=== PATIENT | female | born 1955 | race Caucasian/White ===

== ENCOUNTER 2021-05-12 09:56 | Emergency (ER) | payer MEDICAID ==
[~2021-05-12] VITALS: Ht 160 cm; Wt 76.2 kg
[2021-05-12 10:12] VITALS: BP 127/81
--- NOTE | 2021-05-12 10:16 | NUR ---
The patient bibs for c/o c having ough, congestion and fevers since april 29 tested positive for covid. In room air and denies SOB. Respiration regular and unlabored. Will continue to monitor the patient.
[2021-05-12] MEDS ORDERED: KETOROLAC TROMETHAMINE INJ 30 MG/ML VIAL IM ONE (10:30)
[2021-05-12] MEDS ORDERED: GUAIFENESIN/D-METHORPHAN HB 5 ML UDC PO ONE (10:30)
[2021-05-12] MEDS ORDERED: GUAIFENESIN/D-METHORPHAN HB 5 ML UDC ONE (10:37)
[2021-05-12] MEDS ORDERED: KETOROLAC TROMETHAMINE INJ 30 MG/ML VIAL ONE (10:38)
[2021-05-12] MEDS ORDERED: BENZ-13 PO (11:01)
[2021-05-12] MEDS ORDERED: IBUP-1957 PO (11:01)
--- NOTE | 2021-05-12 11:22 | NUR ---
Patient discharged to home in stable condition. Written and verbal after care instructions given. Patient verbalizes understanding of instruction.
== END 2021-05-12 11:23 | disposition home or self-care (01) ==
LOC: ER 10:12
DX: U07.1 COVID-19 (principal); I10 Essential (primary) hypertension; E11.9 Type 2 diabetes mellitus without complications
CPT/HCPCS: 71045; 96372; 99283; J1885